=== PATIENT | male | born 1965 | race Caucasian/White ===

== ENCOUNTER 2017-02-14 20:35 | Emergency (ER) | payer BC, OTHER ==
[2017-02-14 21:29] VITALS: BP 130/94; PULSE 82; RESP 18; TEMP 98.1; O2SAT 99
--- NOTE | 2017-02-14 22:30 | ED PDOC ---
HPI: General Adult Time Seen by Provider: 02/14/17 21:31 Chief Complaint (Nursing): Flu-like Symptoms Chief Complaint (Provider): [place] for 3 days, fever yesterda History Per: Patient History/Exam Limitations: no limitations Onset/Duration Of Symptoms: Days Have you had recent travel within the past 21 days to any of the following countries: [place], [place], [place] or [place]?: No Current Symptoms Are (Timing): Still Present Additional Complaint(s): Pt reports fever yesterday, phlegm today. Bodyaches Past Medical History Reviewed: Historical Data, Nursing Documentation, Vital Signs Vital Signs: Last Vital Signs Temp 98.1 F 02/14/17 21:26 Pulse 82 02/14/17 21:26 Resp 18 02/14/17 21:26 BP 130/94 H 02/14/17 21:26 Pulse Ox 99 02/14/17 21:26 - Medical History PMH: No Chronic Diseases - Surgical History Surgical History: No Surg Hx - Family History Family History: States: Hypertension - Living Arrangements Living Arrangements: With Family - Social History Current smoker - smoking cessation education provided: No - Home Medications Home Medications: Ambulatory Orders Medication Instructions Recorded Vancomycin [Vancomycin HCl] 1 gm IV BID 07/18/15 Azithromycin [Zithromax] 250 mg PO DAILY #6 tab 02/14/17 Oseltamivir [Tamiflu] 75 mg PO BID #10 cap 02/14/17 - Allergies Allergies/Adverse Reactions: Allergies Allergy/AdvReac Type Severity Reaction Status Date / Time diclofenac Allergy RASH Verified 07/18/15 15:21 Sulfa (Sulfonamide Allergy RASH Verified 07/18/15 15:19 Antibiotics) Tetracyclines Allergy RASH Verified 07/18/15 15:20 Review of Systems ROS Statement: Except As Marked, All Systems Reviewed And Found Negative Constitutional: Positive for: Fever, Chills, Malaise Respiratory: Positive for: Cough Gastrointestinal: Negative for: Nausea, Vomiting, Abdominal Pain Physical Exam - Reviewed Nursing Documentation Reviewed: Yes Vital Signs Reviewed: Yes - Physical Exam Appears: Positive for: Well, Non-toxic, No Acute Distress Head Exam: Positive for: ATRAUMATIC, NORMAL INSPECTION, NORMOCEPHALIC Skin: Positive for: Normal Color, Warm, DRY Eye Exam: Positive for: Normal appearance ENT: Positive for: Normal ENT Inspection Neck: Positive for: Normal, Painless ROM Cardiovascular/Chest: Positive for: Regular Rate, Rhythm Respiratory: Positive for: Normal Breath Sounds. Negative for: Accessory Muscle Use, Respiratory Distress Back: Positive for: Normal Inspection Extremity: Positive for: Normal ROM Neurologic/Psych: Positive for: Alert, Oriented - ECG O2 Sat by Pulse Oximetry: 99 Disposition - Clinical Impression Clinical Impression: Influenza, Acute bronchitis - Patient ED Disposition Is Patient to be Admitted: No Counseled Patient/Family Regarding: Diagnosis, Need For Followup, Rx Given - Disposition Disposition: Routine/Home Disposition Time: 22:28 Condition: GOOD Prescriptions: Azithromycin [Zithromax] 250 mg PO DAILY #6 tab Oseltamivir [Tamiflu] 75 mg PO BID #10 cap Instructions: Influenza (ED)
--- NOTE | 2017-02-15 09:08 | RAD ---
HISTORY: cough, fever COMPARISON: No prior. TECHNIQUE: Chest PA and lateral FINDINGS: LUNGS: No active pulmonary disease. PLEURA: No significant pleural effusion identified. No pneumothorax apparent. CARDIOVASCULAR: Normal. OSSEOUS STRUCTURES: Straight back/borderline pectus excavatum orientation VISUALIZED UPPER ABDOMEN: Normal. OTHER FINDINGS: None. IMPRESSION: No active disease. Specifically no infiltrate
== END 2017-02-14 22:55 | disposition home or self-care (01) ==
LOC: H.ER 20:35
DX: J11.1 Influenza due to unidentified influenza virus with other respiratory manifestations (principal); J20.9 Acute bronchitis, unspecified